=== PATIENT | female | born 1980 | race Caucasian/White ===

== ENCOUNTER 2018-05-01 07:47 | Emergency (ER) | payer OTHER ==
[2018-05-01 07:58] VITALS: BP 121/83; PULSE 95; RESP 18; TEMP 97.6
[2018-05-01] MEDS ORDERED: HYDROcodone/APAP 5-325MG 1 EACH TAB PO STA (08:12)
--- NOTE | 2018-05-01 08:12 | ED ---
General Adult HPI - General Chief complaint: Back Pain/Injury Stated complaint: tailbone injury Time Seen by Provider: 05/01/18 08:00 Source: patient Mode of arrival: ambulatory Limitations: no limitations - Related Data Home Medications Medication Instructions Recorded Confirmed Acetaminophen [Tylenol Extra 1,000 mg PO DAILY PRN 05/01/18 05/01/18 Strength] Ibuprofen [Motrin Ib] 800 mg PO BID PRN 05/01/18 05/01/18 Previous Rx's Medication Instructions Recorded HYDROcodone/APAP 5-325MG [Rough And Ready 1 tab PO Q6HR PRN 3 Days #8 tab 05/01/18 5-325] Allergies Allergy/AdvReac Type Severity Reaction Status Date / Time No Known Allergies Allergy Verified 05/01/18 08:38 Review of Systems ROS Statement: Those systems with pertinent positive or pertinent negative responses have been documented in the HPI. ROS Other: All systems not noted in ROS Statement are negative. Past Medical History Past Medical History: Myocardial Infarction (PR) History of Any Multi-Drug Resistant Organisms: None Reported Past Surgical History: Section, Heart Catheterization With Stent, Tubal Ligation Past Psychological History: No Psychological Hx Reported Smoking Status: Current every day smoker Past Alcohol Use History: Occasional Past Drug Use History: Marijuana General Exam Limitations: no limitations Course Vital Signs 05/01/18 07:53 Temperature 97.6 F Pulse Rate 95 Respiratory 18 Rate Blood Pressure 121/83 O2 Sat by Pulse 98 Oximetry Medical Decision Making - Medical Decision Making Dictation was produced using [employer] dictation software. please excuse any grammatical, word or spelling errors. Chief Complaint: 38-year-old female past medical history of myocardial infarction, tubal ligation, coccygeal fracture presents with tailbone pain. History of Present Illness: Patient is a 38-year-old female. She has history of coccygeal fracture several years ago. She was sledding approximately 3 weeks ago when she became airborne and landed heartily on some packed snow. She states that she's been having pain. Patient states over the last 3 days the pain is unbearable. Patient reports tenderness to palpation over the coccyx. She states that she has not had any urinary or bowel symptoms. Patient reports worsening symptoms with sitting. The ROS documented in this emergency department record has been reviewed and confirmed by me. Those systems with pertinent positive or negative responses have been documented in the HPI. All other systems are other negative and/or noncontributory. PHYSICAL EXAM: General Impression: Alert and oriented x3, not in acute distress HEENT: Normocephalic atraumatic, extra-ocular movements intact, pupils equal and reactive to light bilaterally, mucous membranes moist. Cardiovascular: Heart regular rate and rhythm, S1&S2 audible, no murmurs, rubs or gallops Chest: Lungs clear to auscultation bilaterally, no rhonchi, no wheeze, no rales Abdomen: Bowel sounds present, abdomen soft, non-tender, non-distended, no organomegaly Musculoskeletal: Pulses present and equal in all extremities, no peripheral edema, tenderness to palpation over the coccyx. No palpable crepitus Motor: Power 5/5 bilaterally, no focal deficits noted Neurological: CN II-XII grossly intact, no focal motor or sensory deficits noted Skin: Intact with no visualized rashes Psych: Normal affect and mood ED course: 38-year-old female presents with coccygeal plain after sledding injury. Vital signs upon arrival are within acceptable limits.Imaging studies obtained. There is no fractures noted on pelvic CT. There is hyperinflation at the coccyx however that may be normal in other individuals. There is a subcu hematoma the right anterior to mid pelvis. Patient questioned about this she reports that she's had this ever since she had her . Patient given by mouth analgesia. She is given referral to orthopedic surgery for further management of this pain. Patient's symptoms likely secondary to coccygeal contusion. Patient given prescription for when necessary analgesia. Disposition Clinical Impression: Pelvic contusion Disposition: HOME SELF-CARE Condition: Good Instructions (If sedation given, give patient instructions): Acute Low Back Pain (ED) Prescriptions: HYDROcodone/APAP 5-325MG [Rough And Ready 5-325] 1 tab PO Q6HR PRN 3 Days #8 tab PRN Reason: Severe Pain Is patient prescribed a controlled substance at d/c from ED?: Yes If prescribed controlled substance>3 days was MAPS reviewed?: Prescribed <3 Days Referrals: Amaury Spaulding MD [Medical Doctor] - 1-2 days Time of Disposition: 08:59
--- NOTE | 2018-05-01 08:48 | CT ---
EXAMINATION TYPE: CT pelvis wo con DATE OF EXAM: 05/01/2018 COMPARISON: None. HISTORY: Tailbone injury 3 weeks ago with increasing pain. CT DLP: 321 mGycm Automated exposure control for dose reduction was used. FINDINGS: Visualized portion of pelvis including sacrum and coccyx show no acute fracture or dislocation. Hip a nd sacroiliac joints are maintained and felt within normal limits. Pubic symphysis is intact. Sclerot ic 7 mm focus left femoral head is felt to reflect benign bone island. Genius anteverted uterus is seen with some lobulation, underlying fibroids are felt present. Correlat e clinically. There is no suspicious bowel dilatation. Normal-appearing appendix is incidentally seen from the cecu m. No significant pelvic fluid is present. Suspicious pelvic adenopathy is noted. There is 2.2 x 2.2 cm irregular right hyperdense area over the anterior right upper to mid pelvis sub cutaneous fat axial image 32 suspicious for small subcutaneous hematoma given patient's history of re cent bumping injury. IMPRESSION: NO ACUTE OSSEOUS FRACTURE OR DISLOCATION. PROBABLE RESOLVING SMALL SUBCUTANEOUS HEMATOMA ANTERIOR RIG HT UPPER TO MID PELVIS.
[2018-05-01] MEDS ORDERED: LIDOCAINE 5% PATCH TOPICAL STA (08:59)
== END 2018-05-01 09:16 | disposition home or self-care (01) ==
LOC: EC 07:47
DX: S30.0XXA Contusion of lower back and pelvis, initial encounter (principal); I25.2 Old myocardial infarction; F17.200 Nicotine dependence, unspecified, uncomplicated; Z95.5 Presence of coronary angioplasty implant and graft; Z98.51 Tubal ligation status; Z98.890 Other specified postprocedural states; Z87.81 Personal history of (healed) traumatic fracture; X39.8XXA Other exposure to forces of nature, initial encounter; W22.8XXA Striking against or struck by other objects, initial encounter; Y93.23 Activity, snow (alpine) (downhill) skiing, snowboarding, sledding, tobogganing and snow tubing
CPT/HCPCS: 72192; 99284